=== PATIENT | male | born 1985 | race Caucasian/White ===

== ENCOUNTER → 2018-09-13 11:43 | Outpatient (CLI) | payer OTHER, SELFPAY ==
[2018-09-13 14:15] LABS: Anion Gap 6 (5-15); BUN 17 mg/dL (7-18); Calcium,Total 9.3 mg/dL (8.5-10.1); Chloride 102 mmol/L (98-107); Creatinine, Serum 0.95 mg/dL (0.70-1.30); EST Glomerular Filtration Rate 98 mL/min (>60); Est Glom Filt Rate - Afr Amer 119 mL/min (>60); Glucose 79 mg/dL (74-106); Potassium 4.2 mmol/L (3.5-5.1); Sodium Level 137 mmol/L (136-145)
[2018-09-14 13:16] LABS: Hep B Surface Antibodies Reactive (.)
== END ==
PROVIDERS: Family Provider Family Medicine; PCP Family Medicine; Referring Provider Family Medicine; Visit Provider Family Medicine
DX: Z01.84 Encounter for antibody response examination (principal); Z90.5 Acquired absence of kidney
CPT/HCPCS: 36415; 80048; 86706

== ENCOUNTER → 2025-01-11 | Outpatient (CLI) | payer BC, SELFPAY ==
--- OUTSIDE RECORDS SUMMARY | 2025-01-11 08:51 | XMS RPT_ITS | CCD ---
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 Role Phone Andrew Finley Attending Unavailable Andrew Finley Referring Unavailable Andrew Finley Primary Care Unavailable Problems Problem Classification Problem Date Documented Da te Episodic/Chronic Residual codes; unclassified (1 source) Acquired absence of kidney; Translations: [V45.73 - Acquired absence of kidney] Onset: 09-13-2018 Episodic Residual codes; unclassified (1 source) Acquired absence of kidney; Translations: [Z90.5 - Acquired absence of kidney] Onset: 09-13-2018 Episodic Results Test Name Value Interpretation Reference Range Facil ity Hep B Surface Antibodieson 0 09-14-2018 Hep B Senia AB Reactive Normal . [facility] Comment on above: Result Comment: Non Reactive: Inconsistent with immunity, less than 10 mIU/mL Reactive: Consistent with immunity, greater than 9.9 mIU/mL Performed at: [facility] [id number] Literature Professor: Enzo Lemos PhD, Phone: [phone] Performed By: #### L 500.2500 #### [facility] [address] [place] [id number] #### [id number] #### [facility] (refer to report for specific site) refer to report for address and phone number Basic Metabolic Profile (BMP )on 09-13-2018 Calcium mass conc 9.3 mg/dL Normal 8.5-10.1 [facility] Comment on above: Performed By: #### L 500.2500 #### [facility] [address] [place], [address] #### [id number] #### [facility] (refer to report for specific site) refer to report for address and phone number Chloride molar conc 102 mmol/L Normal 98-107 [facility] Comment on above: Performed By: #### L 500.2500 #### [facility] [address] [place], [address] #### [id number] #### [facility] (refer to report for specific site) refer to report for address and phone number CO2 molar conc 29.0 mmol/L Normal 21.0-32.0 [facility] Comment on above: Performed By: #### L 500.2500 #### [facility] [address] [place], [address] #### [id number] #### [facility] (refer to report for specific site) refer to report for address and phone number Creatinine mass conc 0.95 mg/dL Normal 0.70-1.30 [facility] Comment on above: Result Comment: The validity of the calculated GFR AND GFRAA in patients over 70 years has not been determined. Clinical correlation is essential. Performed By: #### L 500.2500 #### [facility] [address] [place], [address] #### [id number] #### [facility] (refer to report for specific site) refer to report for address and phone number EST GFR - AA 119 mL/min Normal >60 [facility] Comment on above: Result Comment: Afri can Polish GFR Calc Performed By: #### L 500.2500 #### [facility] [address] [place], [address] #### [id number] #### [facility] (refer to report for specific site) refer to report for address and phone number GAP 6 Normal 5-15 [facility] Comment on above: Performed By: #### L 500.2500 #### [facility] [address] [place], [address] #### [id number] #### [facility] (refer to report for specific site) refer to report for address and phone number GFR/1.73 sq M predicted among non-blacks MDRD vol rate/area (S/P/Bld) 98 mL/min/{1.73_m2} Normal >60 [facility] Comment on above: Result Comment: Non- GFR Calc Performed By: #### L 500.2500 #### [facility] [address] [place], [address] #### [id number] #### [facility] (refer to report for specific site) refer to report for address and phone number Glucose mass conc 79 mg/dL Normal 74-106 [facility] Comment on above: Result Comment: Kan armijo note revised GLUCOSE reference range effective 2017. Performed By: #### L 500.2500 #### [facility] [address] [place], [address] #### [id number] #### [facility] (refer to report for specific site) refer to report for address and phone number Potassium molar conc 4.2 mmol/L Normal 3.5-5.1 [facility] Comment on above: Performed By: #### L 500.2500 #### [facility] [address] [place], [address] #### [id number] #### [facility] (refer to report for specific site) refer to report for address and phone number Sodium molar conc 137 mmol/L Normal 136-145 [facility] Comment on above: Performed By: #### L 500.2500 #### [facility] [address] [place], [address] #### [id number] #### [facility] (refer to report for specific site) refer to report for address and phone number Urea nitrogen mass conc 17 mg/dL Normal 7-18 [facility] Comment on above: Performed By: #### L 500.2500 #### [facility] [address] [place], [address] #### [id number] #### [facility] (refer to report for specific site) refer to report for address and phone number Urea nitrogen mass conc 18.0 RATIO Normal - [facility] Comment on above: Performed By: #### L 500.2500 #### [facility] [address] [place], [address] #### [id number] #### [facility] (refer to report for specific site) refer to report for address and phone number Encounters Encounter Date Encounter Type Care Provider Facility Start: 09-13-2018 Antibody response examination [facility] Start: 09-13-2018 Encounter for antibo dy response examination [facility] Start: 09-13-2018 Patient encounter procedure [facility] Facility:[facility] Payers Date Payer Category Payer Private Health Insurance [id number] 2018 Self-pay Unknown [id number] Summary Purpose Family History No Family History Records Found Advance Directives No Advanced Directives Records Found Additional Source Comments (unrecognized sect ion and content) No Status Records Found INFORMATION SOURCE (unrecogn ized section and content) DATE CREATED AUTHOR 09/15/2018 [facility] FOR RECORDS PERTAINING TO PATIENTS WHO ARE OR HAVE BEEN ENROLLED IN A CHEMICAL DEPENDENCY/SUBSTANCEABUSE PROGRAM, SOME INFORMATION MAY BE OMITTED. This clinical summary was aggregated from multiple sources. Caution should be exercised in using it in the provision of clinical care. This summary normalizes information from multiple sources, and as a consequence, information in this document may materially change the coding, format and clinical context of patient data. In addition, data may be omitted in some cases. CLINICAL DECISIONS SHOULD BE BASED ON THE PRIMARY CLINICAL RECORDS. [employer] provides no warranty or guarantee of the accuracy or completeness of information in this document.
[2025-01-11 12:03] LABS: Anion Gap 11 (5-15); BUN 11 mg/dL (4-19); BUN/Creat Ratio 11.1 RATIO (10-20); Calcium,Total 9.9 mg/dL (7.6-11.0); Carbon Dioxide 27.8 mmol/L (21.0-32.0); Chloride 100 mmol/L (98-108); Cholesterol 241 mg/dL (<=200); Glucose 96 mg/dL (70-99); Low Density Lipoprotein Calc. 143 mg/dL; Potassium 4.4 mmol/L (3.3-5.1); Triglycerides 92 mg/dL; Very Low Density Lipoprotein 18 mg/dL (5-40); cholesterol:hdl ratio screen 3.01
== END | disposition home or self-care (01) ==
LOC: MFPLAB 08:18
PROVIDERS: PCP Family Medicine; Referring Provider Family Medicine; Visit Provider Family Medicine
DX: Z90.5 Acquired absence of kidney (principal); Z13.220 Encounter for screening for lipoid disorders
CPT/HCPCS: 36415; 80048; 80061